=== PATIENT | female | born 1990 | race Two or more races ===

== ENCOUNTER 2022-03-24 02:07 | Emergency (ER) | payer SELFPAY ==
[~2022-03-24] VITALS: Ht 162.6 cm; Wt 96.0 kg
--- NOTE | 2022-03-24 02:25 | PHYS DOC ---
Adult General HPI HPI Patient is a 31-year-old female at approximately 9 weeks gestation who presents with a chief complaint of fever, cough, sore throat and abdominal cramping. Denies recent travels, traumas, chest pain, shortness of breath, nausea vomiting or diarrhea. Denies any vaginal bleeding, discharge or pain or history of STIs or concern thereof. States she just had a normal ultrasound last week at her OB at . 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 Denies any other known ill contacts. States she has not been vaccinated for COVID but has had COVID last year. Review of Systems Review of Systems Review of systems otherwise unremarkable except noted in HPI Physical Exam Physical Exam Constitutional: Well developed, well nourished, no acute distress, non-toxic appearance. [] HENT: Normocephalic, atraumatic, bilateral external ears normal, oropharynx moist, oropharyngeal erythema, no oral exudates, nose normal. [] Eyes: conjunctiva normal, no discharge. [] Neck: Normal range of motion, no tenderness, supple, no stridor, no lymphadenopathy. [] Cardiovascular:Heart rate regular rhythm, no murmur [] Lungs & Thorax: Bilateral breath sounds clear to auscultation [] Abdomen: soft, no tenderness, no masses, no pulsatile masses. [] Skin: Warm, dry, no erythema, no rash. [] Back: no CVA tenderness. [] Extremities: No tenderness, no cyanosis, no clubbing, ROM intact, no edema. [] Neurologic: Alert and oriented X 3, normal motor function, normal sensory function, no focal deficits noted. [] Psychologic: Affect normal, judgement normal, mood normal. [] EKG EKG [] Radiology/Procedures Radiology/Procedures [] Heart Score C/O Chest Pain: No Risk Factors: Risk Factors: DM, Current or recent (<one month) smoker, HTN, HLP, family history of CAD, obesity. Risk Scores: Risk Factors: DM, Current or recent (<one month) smoker, HTN, HLP, family h istory of CAD, obesity. Course & Med Decision Making Course & Med Decision Making Patient is a 31-year-old female, endorsing 9 weeks gestation who presents with a chief complaint of fever Vital signs notable for sinus tachycardia. Physical exam noted above. Urinalysis not concerning. POC ultrasound showed intrauterine fetus with no intra-abdominal bleeding and heart rate around 140. Given Tylenol, Benadryl and IV fluids. Chest x-ray suggestive of right lower lobe pneumonia. Started on antibiotics in the ED. Discussed all findings with patient. On reassessment patient feeling better and heart rate improved Discussed symptom management at home. Advised to follow-up in the morning with primary care physician and [facility]. Gave strict return precautions to the ED. Family grateful, verbalized understanding and agreed with plan of discharge. Dragon Disclaimer Dragon Disclaimer This electronic medical record was generated, in whole or in part, using a voice recognition dictation system. Departure Departure: Impression: Primary Impression: Fever Additional Impressions: Cough Pneumonia Dehydration Disposition: HOME / SELF CARE / HOMELESS Condition: STABLE Referrals: [facility] Patient Instructions: Pneumonia, Adult Additional Instructions: Thank for coming into the emergency department tonight and allowing us to take care of you. Please read the attached information carefully to go over things we discussed. Please take your antibiotics at home as prescribed and until gone. Please continue 1000 mg of Tylenol every 8 hours at home over the next couple of days. Please also continue 50 mg of Benadryl every 6 hours over the next couple of days. Please be sure to stay well-hydrated, ensuring that your urine is relatively clear. Please try to eat at least 2-3 nutritious meals daily and take your vitamin. Please follow-up in the morning with your primary care physician and your HOSI[facility] PAIRER to update on your ED visit and set up follow-up for soon as you can. Please come back with new or concerning symptoms as we discussed. Scripts Amoxicillin/Potassium Clav (AUGMENTIN 875-125 TABLET) 1 Each Tablet 1 TAB PO BID for PNA for 7 Days, #13 TAB 0 Refills Prov: DESTIN GARCIA MD 03/24/22 Problem Qualifiers DESTIN GARCIA MD March 24, 2022 02:25
[2022-03-24 03:08] LABS: BACTERIA,URINE 0 /HPF (0-FEW); CLARITY,URINE CLEAR; COLOR,URINE YELLOW; GLUCOSE,URINE 250 mg/dL (NEG); NITRITE,URINE NEG (NEG); RBC,URINE RARE /HPF (0-2); SQUAMOUS EPITHELIAL CELL,UR FEW /LPF; UROBILINOGEN,URINE 0.2 mg/dL (0.2 mg/dL)
[2022-03-24] MEDS ORDERED: AMOX1TAB61 PO (04:05)
[2022-03-24] MEDS: IV RINGERS SOLUTION,LACTATED 1,000 ML IV ONE (04:09)
[2022-03-24] MEDS: ACETAMINOPHEN 500 MG TABLET PO ONE (04:09)
[2022-03-24] MEDS: AMOXICILLIN/K CLAV 875/125MG TABLET. PO ONE (04:09)
[2022-03-24] MEDS: diphenhydrAMINE HCL 25 MG CAPSULE PO ONE (04:10)
--- NOTE | 2022-03-24 04:35 | RAD ---
INDICATION: Reason: cough , fever / Spl. Instructions: / History: COMPARISON: None. FINDINGS: Frontal view of chest obtained. Cardiac silhouette is unremarkable. Mild haziness at the lung bases without definite consolidation el sewhere in the lungs. IMPRESSION: * Mild haziness at the lung bases likely secondary to overlap of soft tissue structures and atelecta sis. No definite consolidation elsewhere in the lungs. Electronically signed by: Kolton Patel MD (03/24/2022 4:33 AM) [id number]
[2022-03-24 05:07] VITALS: BP 111/65
== END 2022-03-24 05:05 | disposition home or self-care (01) ==
LOC: ER 02:07
DX: O99.511 Diseases of the respiratory system complicating pregnancy, first trimester (principal); J18.9 Pneumonia, unspecified organism; O99.281 Endocrine, nutritional and metabolic diseases complicating pregnancy, first trimester; E86.0 Dehydration; Z3A.09 9 weeks gestation of pregnancy
CPT/HCPCS: 71045; 81001; 81025; 87086; 96360; 99284; J7120; Q0163